=== PATIENT | male | born 1985 | race Two or more races ===

== ENCOUNTER 2018-06-05 02:09 | Emergency (ER) | payer SELFPAY ==
[~2018-06-05] VITALS: Ht 162.6 cm; Wt 109.1 kg
[2018-06-05 05:00] VITALS: BP 134/68
== END 2018-06-05 06:01 | disposition home or self-care (01) ==
LOC: ED 02:35
DX: F10.120 Alcohol abuse with intoxication, uncomplicated (principal); Z71.41 Alcohol abuse counseling and surveillance of alcoholic
CPT/HCPCS: 99283

== ENCOUNTER 2018-08-05 23:42 | Emergency (ER) | payer SELFPAY ==
[~2018-08-05] VITALS: Ht 175.3 cm; Wt 84.0 kg
[2018-08-05] MEDS ORDERED: ZIPRASIDONE 20 MG INJ IM ONE (23:45)
[2018-08-05 23:48] VITALS: BP 138/89
[2018-08-06] MEDS ORDERED: ZIPRASIDONE 20 MG INJ IM ONE ×2
== END 2018-08-06 05:56 | disposition home or self-care (01) ==
LOC: ED 23:58
DX: G31.2 Degeneration of nervous system due to alcohol (principal); F10.229 Alcohol dependence with intoxication, unspecified; Z72.9 Problem related to lifestyle, unspecified; Z63.8 Other specified problems related to primary support group; Z75.9 Unspecified problem related to medical facilities and other health care; Y90.9 Presence of alcohol in blood, level not specified
CPT/HCPCS: 36415; 80307; 96372; 99283; J3486